=== PATIENT | male | born 1960 | race Caucasian/White ===

== ENCOUNTER → 2016-05-01 | Outpatient (CLI) | payer OTHER ==
[~2016-05-01] MED LIST: BISO10TA14 PO
--- NOTE | 2016-05-01 08:46 | DIAGNOSTIC IMAGING REPORT ---
ABDOMINAL ULTRASOUND, RIGHT UPPER QUADRANT HISTORY: Fatty liver. COMPARISON: Right upper quadrant ultrasound December 28, 2014. FINDINGS: Liver morphology is normal. Hepatic echogenicity is increased. This is similar to prior exam of December 28, 2014. A suspected area of fatty sparing within the tania hepatis is unchanged. No shadowing gallstones are identified. Several small gallbladder polyps measuring up to 3 mm are unchanged. There is no gallbladder wall thickening. The pancreatic body is normal. The head and tail are slightly obscured. There is no right hydronephrosis. There is no biliary ductal dilatation. IMPRESSION: 1. No gallstones or biliary ductal dilatation. 2. Fatty infiltration of the liver with suspected focus of sparing within the tania hepatis. The appearance is similar to exam of December 28, 2014. 3. No change in tiny gallbladder polyps. Electronically signed by: Evens Garibay M.D. 05/01/2016 8:45 AM Dictated Date/Time: 05/01/2016 8:43 AM
== END | disposition home or self-care (01) ==
LOC: C.ULTRBC 07:55
PROVIDERS: ATTEND Family Medicine
DX: K82.9 Disease of gallbladder, unspecified (principal); K76.0 Fatty (change of) liver, not elsewhere classified